=== PATIENT | female | born 1945 | race Caucasian/White ===

== ENCOUNTER 2023-02-17 14:45 | Emergency (ER) | payer OTHER, MEDICAID ==
[~2023-02-17] VITALS: Ht 162.6 cm; Wt 74.8 kg
[2023-02-17 14:47] VITALS: BP 144/64; PULSE 84; RESP 17; TEMP 97.9; O2SAT 98
[2023-02-17] MEDS ORDERED: LORazepam 1 MG TAB PO ONE ×2 (15:30→16:35)
[2023-02-17 15:47] LABS: BASOPHILS # (AUTO) 0.1 K/uL (0.00-0.22); BASOPHILS % (AUTO) 0.9 % (0.0-2.0); EOSINOPHILS # (AUTO) 0.1 K/uL (0-0.4); EOSINOPHILS % (AUTO) 0.8 % (0.0-4.0); HEMATOCRIT 36.8 % (36-48); HEMOGLOBIN 12.5 g/dL (12.0-16.0); LYMPHOCYTES # (AUTO) 2.3 K/uL (2.5-16.5); LYMPHOCYTES % (AUTO) 27.5 % (20.5-51.1); MEAN CORPUSCULAR HEMOGLOBIN 30 pg (27-31); MEAN CORPUSCULAR HGB CONC 34 g/dL (33-37); MONOCYTES # (AUTO) 0.8 K/uL (0.8-1.0); MONOCYTES % (AUTO) 10.1 % (1.7-9.3); NEUTROPHILS # (AUTO) 5.1 K/uL (1.8-7.7); NEUTROPHILS % (AUTO) 60.7 % (42.2-75.2); PLATELET COUNT (AUTO) 379 K/uL (140-450); RED BLOOD CELL COUNT(AUTO) 4.19 MIL/uL (4.20-5.40); RED CELL DISTRIBUTION WIDTH 12.6 % (11.6-13.7); WHITE BLOOD COUNT (AUTO) 8.4 K/uL (4.8-10.8)
[2023-02-17 16:11] LABS: ALANINE AMINOTRANSFERASE 21 U/L (12-78); ALBUMIN 3.5 g/dL (3.4-5.0); ALKALINE PHOSPHATASE 80 U/L (50-136); ANION GAP 12.5 (8-16); ASPARTATE AMINOTRANSFERASE 18 U/L (15-37); CALCIUM 8.6 mg/dL (8.5-10.1); CARBON DIOXIDE 28.4 mmol/L (21-32); CHLORIDE 100 mmol/L (98-107); CREATININE 0.9 mg/dL (0.6-1.3); GLUCOSE 98 mg/dL (74-106); MAGNESIUM 1.9 mg/dL (1.8-2.4); PHOSPHORUS 4.1 mg/dL (2.5-4.9); POTASSIUM 3.9 mmol/L (3.5-5.1); SODIUM SERUM 137 mmol/L (136-145); THYROID STIMULATING HORMONE 1.99 uIU/mL (0.34-3.74); TOTAL BILIRUBIN 0.3 mg/dL (0.0-1.0); TOTAL PROTEIN, SERUM 7.5 g/dL (6.4-8.2); UREA NITROGEN, BLOOD 14 mg/dL (7-18)
[2023-02-17] MEDS ORDERED: ATA25 PO (16:33)
[2023-02-17] MEDS ORDERED: HYDROcodone/APAP 5/325 MG 1 TAB TAB PO ONE (16:35)
== END 2023-02-17 17:50 | disposition home or self-care (01) ==
LOC: MED 14:45
DX: F41.9 Anxiety disorder, unspecified (principal); G47.00 Insomnia, unspecified; G89.29 Other chronic pain; Z79.899 Other long term (current) drug therapy
CPT/HCPCS: 36415; 80053; 83735; 84100; 84443; 85025; 93005; 99284